=== PATIENT | female | born 1950 | race Caucasian/White ===

== ENCOUNTER 2017-01-11 08:34 | Inpatient (IN) | payer OTHER ==
[2017-01-06 11:04] LABS: BASOPHILS % (AUTO) 0.8 % (0.0-2.0); EOSINOPHILS # (AUTO) 0.2 K/uL (0.0-0.4); EOSINOPHILS % (AUTO) 4.6 % (0.0-4.0); HEMATOCRIT 31.6 % (36-48); HEMOGLOBIN 10.1 g/dL (12.0-16.0); LYMPHOCYTES # (AUTO) 2.2 K/uL (1.0-5.5); LYMPHOCYTES % (AUTO) 45.7 % (20.5-51.5); MEAN CORPUSCULAR HEMOGLOBIN 27 pg (27-31); MEAN CORPUSCULAR HGB CONC 32 % (32-36); MEAN CORPUSCULAR VOLUME 84 fL (79.0-98.0); MONOCYTES # (AUTO) 0.5 K/uL (0.0-1.0); NEUTROPHILS # (AUTO) 1.9 K/uL (1.8-7.7); NEUTROPHILS % (AUTO) 38.9 % (40.0-70.0); PLATELET COUNT (AUTO) 366 K/uL (130-430); RED BLOOD CELL COUNT(AUTO) 3.77 MIL/uL (4.2-6.2); RED CELL DISTRIBUTION WIDTH 14.7 % (9.0-15.0); WHITE BLOOD COUNT (AUTO) 4.8 K/uL (4.8-10.8)
[2017-01-06 11:12] LABS: PROTHROMBIN TIME 10.4 SECS (9.5-12.5)
[2017-01-06 11:15] LABS: BILIRUBIN,URINE NEGATIVE (NEGATIVE); BLOOD, URINE NEGATIVE (NEGATIVE); CLARITY/URINE CLEAR (CLEAR); COLOR,URINE YELLOW (YELLOW); GLUCOSE,URINE NEGATIVE (NEGATIVE); KETONES,URINE NEGATIVE (NEGATIVE); LEUKOCYTE ESTERASE ,URINE NEGATIVE (NEGATIVE); NITRITE, URINE NEGATIVE (NEGATIVE); PROTEIN URINE NEGATIVE (NEGATIVE); UROBILINOGEN,URINE 0.2 (0.2-1.0)
[2017-01-06 11:16] LABS: ALBUMIN 3.7 g/dL (3.4-4.8); CALCIUM 8.4 mg/dL (8.4-11.0); CREATININE 0.72 mg/dL (0.55-1.30); TOTAL BILIRUBIN 0.2 mg/dL (0.0-1.0); TOTAL PROTEIN, SERUM 7.3 g/dL (6.4-8.3)
[~2017-01-11] VITALS: Ht 157.5 cm; Wt 79.8 kg
[~2017-01-11 08:34] MED LIST: COMMUNICATION ORDER XX ONE
[2017-01-11] MEDS ORDERED: CEFAZOLIN SOD 2 GM in D5W 50 ML IV ONE (09:30)
[2017-01-11] MEDS ORDERED: VANCOMYCIN HCL 1,250 MG in NS 250 ML IV ONE (09:30)
[2017-01-11] MEDS ORDERED: TRANEXAMIC ACID 1,000 MG/10 ML VIAL IV ONE (09:45)
[2017-01-11] MEDS ORDERED: POLYMYXIN 500,000/BACIT.10,000 UNITS in NS IRR 1 L IR ONE (10:07)
[2017-01-11] MEDS ORDERED: SERT50TA PO (10:22)
[2017-01-11] MEDS ORDERED: BUDE180A3 INH (10:22)
[2017-01-11] MEDS ORDERED: METH-34 PO (10:22)
[2017-01-11] MEDS ORDERED: CETI1TAB2 PO (10:22)
[2017-01-11] MEDS ORDERED: FERR140T PO (10:22)
[2017-01-11] MEDS ORDERED: RALO60TA PO (10:22)
[2017-01-11] MEDS ORDERED: CYAN5000 SL (10:22)
[2017-01-11] MEDS ORDERED: BUDE6HFA INH (10:22)
[2017-01-11] MEDS ORDERED: CALC-1208 PO (10:22)
[2017-01-11] MEDS ORDERED: TRIA10.8 NS (10:22)
[2017-01-11] MEDS ORDERED: MONT10TA25 PO (10:22)
[2017-01-11] MEDS ORDERED: IBUP100T8 PO (10:22)
[2017-01-11] MEDS ORDERED: MULT-1189 PO (10:22)
[2017-01-11] MEDS ORDERED: OMEP40CA33 PO (10:22)
[2017-01-11] MEDS ORDERED: GABA800T PO (10:22)
[2017-01-11] MEDS ORDERED: VIS25 PO (10:22)
[2017-01-11] MEDS ORDERED: HYDR-4100 PO (10:22)
[2017-01-11] MEDS ORDERED: LIDP TP (10:22)
[2017-01-11] MEDS ORDERED: IBUP-1480 PO (10:26)
[2017-01-11] MEDS ORDERED: MUPI1OIN4 NS (10:52)
[2017-01-11] MEDS ORDERED: LR 1,000 ML IV ONE (14:13)
[2017-01-11] MEDS ORDERED: KETOROLAC TROMETHAMINE 30 MG VIAL IM PRN (14:15)
[2017-01-11] MEDS ORDERED: NALBUPHINE HCL 10 MG/ML AMP IVP PRN (14:15)
[2017-01-11] MEDS ORDERED: fentaNYL CITRATE/PF 100 MCG/2 ML AMP IVP PRN (14:15)
[2017-01-11] MEDS ORDERED: DIPHENHYDRAMINE INJ 50 MG/ML VIAL IVP PRN (14:15)
[2017-01-11] MEDS ORDERED: NALOXONE HCL 0.4 MG/ML AMP (NARCAN) IVP PRN (14:15)
[2017-01-11] MEDS ORDERED: ONDANSETRON HCL 4 MG/2 ML VIAL IVP PRN ×2 (14:15)
[2017-01-11] MEDS ORDERED: ePHEDrine sulfate 50 MG/ML VIAL IVP PRN (14:15)
[2017-01-11] MEDS ORDERED: fentaNYL CITRATE/PF 100 MCG/2 ML AMP ONE (16:07)
[2017-01-11 16:53] VITALS: BP_SYST 138
[2017-01-11] MEDS: HYDROcodone/ACETAMIN 10-325 MG TAB PO PRN ×2 (17:23→21:39)
[2017-01-11] MEDS: DIPHENHYDRAMINE HCL 25 MG CAPSULE PO PRN ×2 (17:23→22:15)
[2017-01-11] MEDS: D5/0.45 NS 1,000 ML IV SCH (17:24)
[2017-01-11 17:27] VITALS: BP_SYST 138
[2017-01-11] MEDS ORDERED: TRANEXAMIC ACID 1,000 MG in NS 50 ML IV ONE (18:15)
[2017-01-11 20:00] VITALS: BP_SYST 126
[2017-01-11] MEDS: SENNOSIDES 8.6 MG TABLET PO SCH (21:39)
[2017-01-11] MEDS: VANCOMYCIN HCL 750 MG in NS 250 ML IV SCH (21:39)
[2017-01-11] MEDS: MUPIROCIN 2% TOPICAL OINTMENT 22 GM TP SCH (21:40)
[2017-01-12] VITALS (7 sets, daily range): BP systolic 104–138
[2017-01-12] MEDS: DIPHENHYDRAMINE HCL 25 MG CAPSULE PO PRN ×2 (02:19→09:00)
[2017-01-12] MEDS: HYDROcodone/ACETAMIN 10-325 MG TAB PO PRN ×2 (02:28→22:57)
[2017-01-12] MEDS: D5/0.45 NS 1,000 ML IV SCH (04:35)
[2017-01-12 06:40] LABS: BASOPHILS % (AUTO) 0.2 % (0.0-2.0); EOSINOPHILS % (AUTO) 0.3 % (0.0-4.0); HEMATOCRIT 23.5 % (36-48); HEMOGLOBIN 7.6 g/dL (12.0-16.0); LYMPHOCYTES % (AUTO) 24.3 % (20.5-51.5); MEAN CORPUSCULAR HEMOGLOBIN 27 pg (27-31); MEAN CORPUSCULAR HGB CONC 32 % (32-36); MEAN CORPUSCULAR VOLUME 84 fL (79.0-98.0); MONOCYTES # (AUTO) 1.1 K/uL (0.0-1.0); MONOCYTES % (AUTO) 13.9 % (1.7-9.3); NEUTROPHILS % (AUTO) 61.3 % (40.0-70.0); PLATELET COUNT (AUTO) 278 K/uL (130-430); RED CELL DISTRIBUTION WIDTH 14.2 % (9.0-15.0); WHITE BLOOD COUNT (AUTO) 8.1 K/uL (4.8-10.8)
[2017-01-12 07:04] LABS: CALCIUM 7.8 mg/dL (8.4-11.0); CREATININE 0.65 mg/dL (0.55-1.30); POTASSIUM 3.9 mmol/L (3.5-5.1)
[2017-01-12] MEDS: GABAPENTIN 400 MG CAPSULE PO SCH ×4 (09:00→20:49)
[2017-01-12] MEDS: ASCORBIC ACID 500 MG TABLET PO SCH ×2 (09:01→20:49)
[2017-01-12] MEDS: OMEPRAZOLE 20 MG CAPSULE.DR (PriLOSEC) PO SCH (09:08)
[2017-01-12] MEDS: MULTIVITAMINS TAB 1 TABLET PO SCH (09:09)
[2017-01-12] MEDS: MUPIROCIN 2% TOPICAL OINTMENT 22 GM TP SCH ×2 (09:09→20:56)
[2017-01-12] MEDS: VANCOMYCIN HCL 750 MG in NS 250 ML IV SCH ×2 (09:09→20:54)
[2017-01-12] MEDS: RIVAROXABAN 10 MG TABLET PO SCH (12:22)
[2017-01-12] MEDS: ONDANSETRON HCL 4 MG/2 ML VIAL IVP PRN ×2 (12:34→21:28)
[2017-01-12 14:00] LABS: IRON (SERUM) 45 mcg/dL (37-145); TOTAL IRON BIND. CAPACITY 331 ug/dL (250-450)
[2017-01-12] MEDS: NACL 0.9% 1,000 ML IV SCH ×2 (14:55→20:49)
[2017-01-12] MEDS: IPRATROPIUM/ALBUTEROL SULFATE 3 ML AMPUL.NEB INH SCH ×3 (15:34→22:49)
[2017-01-12] MEDS: SENNOSIDES 8.6 MG TABLET PO SCH (20:49)
[2017-01-13 00:11] VITALS: BP_SYST 130
[2017-01-13] MEDS: IPRATROPIUM/ALBUTEROL SULFATE 3 ML AMPUL.NEB INH SCH ×6 (02:00→23:56)
[2017-01-13] MEDS: HYDROcodone/ACETAMIN 10-325 MG TAB PO PRN ×4 (03:59→20:29)
[2017-01-13 04:09] VITALS: BP_SYST 137
[2017-01-13 06:43] LABS: BASOPHILS % (AUTO) 0.2 % (0.0-2.0); EOSINOPHILS % (AUTO) 0.1 % (0.0-4.0); HEMATOCRIT 25.4 % (36-48); HEMOGLOBIN 8.2 g/dL (12.0-16.0); LYMPHOCYTES # (AUTO) 1.3 K/uL (1.0-5.5); LYMPHOCYTES % (AUTO) 14.6 % (20.5-51.5); MEAN CORPUSCULAR HEMOGLOBIN 28 pg (27-31); MEAN CORPUSCULAR HGB CONC 33 % (32-36); MEAN CORPUSCULAR VOLUME 85 fL (79.0-98.0); MONOCYTES # (AUTO) 1.2 K/uL (0.0-1.0); MONOCYTES % (AUTO) 13.3 % (1.7-9.3); NEUTROPHILS # (AUTO) 6.2 K/uL (1.8-7.7); NEUTROPHILS % (AUTO) 71.8 % (40.0-70.0); PLATELET COUNT (AUTO) 281 K/uL (130-430); RED BLOOD CELL COUNT(AUTO) 2.98 MIL/uL (4.2-6.2); WHITE BLOOD COUNT (AUTO) 8.7 K/uL (4.8-10.8)
[2017-01-13] MEDS: OMEPRAZOLE 20 MG CAPSULE.DR (PriLOSEC) PO SCH (06:46)
[2017-01-13 06:57] LABS: CALCIUM 7.8 mg/dL (8.4-11.0); CREATININE 0.6 mg/dL (0.55-1.30); POTASSIUM 3.8 mmol/L (3.5-5.1); VANCOMYCIN,TROUGH 7.8 ug/mL (5.0-10.0)
[2017-01-13 08:00] VITALS: BP_SYST 126
[2017-01-13] MEDS: ONDANSETRON HCL 4 MG/2 ML VIAL IVP PRN (08:34)
[2017-01-13] MEDS: MULTIVITAMINS TAB 1 TABLET PO SCH (08:35)
[2017-01-13] MEDS: GABAPENTIN 400 MG CAPSULE PO SCH ×4 (08:35→20:28)
[2017-01-13] MEDS: VANCOMYCIN HCL 750 MG in NS 250 ML IV SCH (08:35)
[2017-01-13] MEDS: ASCORBIC ACID 500 MG TABLET PO SCH ×2 (08:35→20:31)
[2017-01-13] MEDS: MUPIROCIN 2% TOPICAL OINTMENT 22 GM TP SCH ×2 (08:37→20:32)
[2017-01-13] MEDS: RIVAROXABAN 10 MG TABLET PO SCH (09:45)
[2017-01-13] MEDS: NACL 0.9% 1,000 ML IV SCH ×2 (09:46→18:45)
[2017-01-13 12:00] VITALS: BP_SYST 128
[2017-01-13] MEDS: FERROUS SULFATE 140 MG TABLET.ER PO SCH ×3 (14:02→20:43)
[2017-01-13] MEDS ORDERED: MUPIROCIN NASAL 2% OINT. 1 GM NS SCH (15:00)
[2017-01-13] MEDS ORDERED: BUDESONIDE/FORMOTEROL 160-4.5 mCg, 6 GM INHALER INH SCH (15:00)
[2017-01-13 16:00] VITALS: BP_SYST 130
[2017-01-13] MEDS: VANCOMYCIN HCL 1,000 MG in NS 250 ML IV SCH (17:16)
[2017-01-13 19:50] VITALS: BP_SYST 135
[2017-01-13] MEDS: SENNOSIDES 8.6 MG TABLET PO SCH (20:28)
[2017-01-13] MEDS: METHOCARBAMOL 500 MG TABLET PO SCH (20:30)
[2017-01-14] VITALS (8 sets, daily range): BP systolic 105–141
[2017-01-14] MEDS: VANCOMYCIN HCL 1,000 MG in NS 250 ML IV SCH ×3 (00:20→17:14)
[2017-01-14] MEDS: IPRATROPIUM/ALBUTEROL SULFATE 3 ML AMPUL.NEB INH SCH ×4 (03:48→17:32)
[2017-01-14] MEDS: HYDROcodone/ACETAMIN 10-325 MG TAB PO PRN ×4 (05:51→19:32)
[2017-01-14 06:26] LABS: CALCIUM 7.7 mg/dL (8.4-11.0); CREATININE 0.48 mg/dL (0.55-1.30); POTASSIUM 3.5 mmol/L (3.5-5.1)
[2017-01-14 06:39] LABS: BASOPHILS % (AUTO) 0.5 % (0.0-2.0); EOSINOPHILS # (AUTO) 0.1 K/uL (0.0-0.4); EOSINOPHILS % (AUTO) 1.9 % (0.0-4.0); HEMATOCRIT 23.8 % (36-48); HEMOGLOBIN 7.8 g/dL (12.0-16.0); LYMPHOCYTES # (AUTO) 1.8 K/uL (1.0-5.5); MEAN CORPUSCULAR HEMOGLOBIN 28 pg (27-31); MEAN CORPUSCULAR HGB CONC 33 % (32-36); MEAN CORPUSCULAR VOLUME 84 fL (79.0-98.0); MONOCYTES # (AUTO) 0.9 K/uL (0.0-1.0); MONOCYTES % (AUTO) 11.7 % (1.7-9.3); NEUTROPHILS # (AUTO) 4.7 K/uL (1.8-7.7); NEUTROPHILS % (AUTO) 61.9 % (40.0-70.0); PLATELET COUNT (AUTO) 260 K/uL (130-430); RED BLOOD CELL COUNT(AUTO) 2.82 MIL/uL (4.2-6.2); RED CELL DISTRIBUTION WIDTH 14.7 % (9.0-15.0); WHITE BLOOD COUNT (AUTO) 7.5 K/uL (4.8-10.8)
[2017-01-14] MEDS ORDERED: OMEPRAZOLE 20 MG CAPSULE.DR (PriLOSEC) PO SCH (07:00)
[2017-01-14] MEDS: NACL 0.9% 1,000 ML IV SCH (07:27)
[2017-01-14] MEDS ORDERED: SERTRALINE HCL 50 MG TABLET PO SCH (09:00)
[2017-01-14] MEDS ORDERED: MONTELUKAST 10 MG TABLET PO SCH (09:00)
[2017-01-14] MEDS ORDERED: RALOXIFENE HCL 60 MG TABLET (EVISTA) PO SCH (09:00)
[2017-01-14] MEDS ORDERED: FLUTICASONE/VILANTEROL 1 EACH BLST.W.DEV INH SCH (09:00)
[2017-01-14] MEDS: ASCORBIC ACID 500 MG TABLET PO SCH (09:16)
[2017-01-14] MEDS: GABAPENTIN 400 MG CAPSULE PO SCH ×3 (09:16→17:13)
[2017-01-14] MEDS: MULTIVITAMINS TAB 1 TABLET PO SCH (09:16)
[2017-01-14] MEDS: METHOCARBAMOL 500 MG TABLET PO SCH (09:17)
[2017-01-14] MEDS: MUPIROCIN 2% TOPICAL OINTMENT 22 GM TP SCH (09:18)
[2017-01-14] MEDS: RIVAROXABAN 10 MG TABLET PO SCH (10:01)
[2017-01-14] MEDS: FERROUS SULFATE 140 MG TABLET.ER PO SCH (14:18)
== END 2017-01-14 20:00 | DRG 470 ==
LOC: SMU 09:19 → STU 01-12 05:31
PROVIDERS: ADMIT Orthopaedic Surgery; ATTEND Orthopaedic Surgery
PROC: 3E0T3CZ (ICD-10-PCS; 2017-01-11)
PROC: 0SRC0J9 Replacement of Right Knee Joint with Synthetic Substitute, Cemented, Open Approach (ICD-10-PCS; principal; 2017-01-11 12:00)
PROC: 30233N1 Transfusion of Nonautologous Red Blood Cells into Peripheral Vein, Percutaneous Approach (ICD-10-PCS; 2017-01-12)
DX: M17.0 Bilateral primary osteoarthritis of knee (principal); D62 Acute posthemorrhagic anemia; E66.9 Obesity, unspecified; F17.200 Nicotine dependence, unspecified, uncomplicated; M65.9 Synovitis and tenosynovitis, unspecified; M81.0 Age-related osteoporosis without current pathological fracture; M22.41 Chondromalacia patellae, right knee; J44.9 Chronic obstructive pulmonary disease, unspecified; F41.9 Anxiety disorder, unspecified; F32.9 Major depressive disorder, single episode, unspecified; G89.29 Other chronic pain; F11.90 Opioid use, unspecified, uncomplicated; M54.5 Low back pain; K21.9 Gastro-esophageal reflux disease without esophagitis; G89.18 Other acute postprocedural pain; Z87.01 Personal history of pneumonia (recurrent); Z98.84 Bariatric surgery status; Z86.14 Personal history of Methicillin resistant Staphylococcus aureus infection; Z88.8 Allergy status to other drugs, medicaments and biological substances; Z82.49 Family history of ischemic heart disease and other diseases of the circulatory system; Z80.3 Family history of malignant neoplasm of breast; Z68.32 Body mass index [BMI] 32.0-32.9, adult; Z82.3 Family history of stroke; Z82.61 Family history of arthritis; Z81.1 Family history of alcohol abuse and dependence; R53.81 Other malaise
CPT/HCPCS: 36415; 71020-TC; 73560-TC; 80048; 80053; 80202-TC; 81003; 82306; 82607; 82746; 83540-TC; 83550-TC; 85025; 85610-TC; 85730-TC; 86886; 86890; 86900; 86901; 86920; 87081; 88305; 88311; 94010; 94640; 94760; 97110-GP; 97116-GP; 97530-GP; C1713; C1776; J0690; J1170; J2405; J3010; J3370; J3490; J7030; J7050; J7060; J7120; Q0163

== ENCOUNTER 2017-07-30 14:14 | Outpatient (CLI) | payer OTHER ==
[~2017-07-30 14:14] MED LIST changes: +BUDE180A3 INH; +BUDE6HFA INH; +CALC-1208 PO; +CETI1TAB2 PO; -COMMUNICATION ORDER XX ONE; +CYAN5000 SL; +FERR140T PO; +GABA800T PO; +HYDR-4100 PO; +IBUP-1480 PO; +LIDP TP; +METH-34 PO; +MONT10TA25 PO; +MULT-1189 PO; +MUPI1OIN4 NS; +OMEP40CA33 PO; +RALO60TA PO; +SERT50TA PO; +TRIA10.8 NS; +VIS25 PO
== END 2017-07-30 20:32 | disposition home or self-care (01) ==
LOC: SLB 14:14
PROVIDERS: ATTEND Internal Medicine Infectious Disease
DX: A49.02 Methicillin resistant Staphylococcus aureus infection, unspecified site (principal)
CPT/HCPCS: 87081

== ENCOUNTER 2017-08-01 15:23 | Outpatient (CLI) | payer OTHER | END 2017-08-01 21:18 | disposition home or self-care (01) | LOC: SLB 15:23 | PROVIDERS: ATTEND Orthopaedic Surgery | DX: A49.02 Methicillin resistant Staphylococcus aureus infection, unspecified site (principal) | CPT/HCPCS: 87081 ==

== ENCOUNTER 2022-10-31 19:13 | Emergency (ER) | payer OTHER ==
[~2022-10-31] VITALS: Ht 152.4 cm; Wt 87.1 kg
[~2022-10-31 19:13] MED LIST changes: -BUDE180A3 INH; -BUDE6HFA INH; +CYAN100T44 PO; -CYAN5000 SL; +DOXY100T2 PO; -FERR140T PO; +FERR140T2 PO; +HYDR-3927 PO; -HYDR-4100 PO; -IBUP-1480 PO; +IBUP-1970 PO; -LIDP TP; +MONT-40 PO; -MONT10TA25 PO; -MUPI1OIN4 NS; +OMEP40CA20 PO; -OMEP40CA33 PO; +VITD2000 PO
[2022-10-31 19:23] VITALS: BP_SYST 115
[2022-10-31 20:11] LABS: BASOPHILS % (AUTO) 0.3 % (0.0-2.0); EOSINOPHILS % (AUTO) 0.4 % (0.0-4.0); HEMOGLOBIN 11.6 g/dL (12.0-16.0); LYMPHOCYTES # (AUTO) 1.2 K/uL (1.0-5.5); LYMPHOCYTES % (AUTO) 17.9 % (20.5-51.5); MEAN CORPUSCULAR HEMOGLOBIN 30 pg (27-31); MEAN CORPUSCULAR HGB CONC 33 % (32-36); MEAN CORPUSCULAR VOLUME 89 fL (79.0-98.0); MONOCYTES # (AUTO) 0.7 K/uL (0.0-1.0); NEUTROPHILS # (AUTO) 4.8 K/uL (1.8-7.7); NEUTROPHILS % (AUTO) 71.4 % (40.0-70.0); PLATELET COUNT (AUTO) 214 K/uL (130-430); RED BLOOD CELL COUNT(AUTO) 3.93 MIL/uL (4.2-6.2); RED CELL DISTRIBUTION WIDTH 18.7 % (9.0-15.0); WHITE BLOOD COUNT (AUTO) 6.7 K/uL (4.8-10.8)
[2022-10-31 20:25] LABS: ANION GAP 7 (5-15); CALCIUM 8.2 mg/dL (8.4-11.0); CHLORIDE 94 mmol/L (98-107); CREATININE 0.76 mg/dL (0.55-1.30); GLUCOSE 118 mg/dL (70-99); UREA NITROGEN, BLOOD 6 mg/dL (8-21)
[2022-10-31] MEDS ORDERED: IPRATROPIUM/ALBUTEROL SULFATE 3 ML AMPUL.NEB (DUONEB) INH ONE (20:30)
[2022-10-31 20:32] LABS: ALANINE AMINOTRANSFERASE 22 U/L (12-78); ALBUMIN 2.9 g/dL (3.4-4.8); ASPARTATE AMINOTRANSFERASE 23 U/L (10-37); TOTAL BILIRUBIN 0.3 mg/dL (0.0-1.0)
[2022-10-31] MEDS ORDERED: predniSONE 20 MG TABLET PO ONE (21:15)
[2022-10-31] MEDS ORDERED: predniSONE 20 MG TABLET ONE (21:36)
[2022-10-31] MEDS ORDERED: PRED20TA PO ×3 (22:00→22:03)
[2022-10-31 22:58] VITALS: BP_SYST 132
== END 2022-10-31 22:57 | disposition home or self-care (01) ==
LOC: SED 19:13
DX: J44.1 Chronic obstructive pulmonary disease with (acute) exacerbation (principal); J40 Bronchitis, not specified as acute or chronic; R06.02 Shortness of breath; R05.9 Cough, unspecified; R11.10 Vomiting, unspecified; Z88.8 Allergy status to other drugs, medicaments and biological substances; Z79.899 Other long term (current) drug therapy; Z20.822 Contact with and (suspected) exposure to COVID-19
CPT/HCPCS: 99284; 71045; 87426; 80053; 85025; 84484; 36415; 94640; J7512

== ENCOUNTER 2023-11-03 15:47 | Inpatient (IN) | payer OTHER ==
[~2023-11-03] VITALS: Ht 152.4 cm; Wt 83.0 kg
[~2023-11-03 15:47] MED LIST changes: +PRED20TA PO
[2023-11-03 15:54] VITALS: BP_SYST 114; PULSE 109; RESP 17; TEMP 100; O2SAT 95
[2023-11-03 16:40] LABS: BASOPHILS % (AUTO) 0.2 % (0.0-2.0); EOSINOPHILS % (AUTO) 0.1 % (0.0-4.0); HEMATOCRIT 38.7 % (36-48); LYMPHOCYTES # (AUTO) 0.6 K/uL (1.0-5.5); LYMPHOCYTES % (AUTO) 5.1 % (20.5-51.5); MEAN CORPUSCULAR HEMOGLOBIN 30 pg (27-31); MEAN CORPUSCULAR HGB CONC 34 % (32-36); MEAN CORPUSCULAR VOLUME 90 fL (79.0-98.0); MONOCYTES # (AUTO) 0.9 K/uL (0.0-1.0); MONOCYTES % (AUTO) 7.5 % (1.7-9.3); NEUTROPHILS % (AUTO) 87.1 % (40.0-70.0); PLATELET COUNT (AUTO) 273 K/uL (130-430); RED BLOOD CELL COUNT(AUTO) 4.31 MIL/uL (4.2-6.2); RED CELL DISTRIBUTION WIDTH 14.7 % (9.0-15.0); WHITE BLOOD COUNT (AUTO) 11.5 K/uL (4.8-10.8)
[2023-11-03 16:58] LABS: ALANINE AMINOTRANSFERASE 21 U/L (12-78); ALBUMIN 3.6 g/dL (3.4-4.8); ANION GAP 7 (5-15); ASPARTATE AMINOTRANSFERASE 22 U/L (10-37); CALCIUM 9.2 mg/dL (8.4-11.0); CARBON DIOXIDE 28 mmol/L (23-29); CHLORIDE 98 mmol/L (98-107); CREATININE 0.82 mg/dL (0.55-1.30); GLUCOSE 117 mg/dL (74-106); POTASSIUM 4.1 mmol/L (3.5-5.1); SODIUM SERUM 133 mmol/L (136-145); TOTAL BILIRUBIN 0.4 mg/dL (0.0-1.0); TOTAL PROTEIN, SERUM 7.7 g/dL (6.4-8.3); UREA NITROGEN, BLOOD 12 mg/dL (8-21)
[2023-11-03 17:00] LABS: BILIRUBIN,DIRECT 0.1 mg/dL (0.0-0.3)
[2023-11-03] MEDS ORDERED: ACETAMINOPHEN 500 MG TABLET ONE (17:11)
[2023-11-03] MEDS: ACETAMINOPHEN 500 MG TABLET PO ONE (17:13)
[2023-11-03 18:07] LABS: BILIRUBIN,URINE NEGATIVE (NEGATIVE); BLOOD, URINE 2+ (NEGATIVE); CLARITY/URINE CLOUDY (CLEAR); COLOR,URINE YELLOW (YELLOW); GLUCOSE,URINE NEGATIVE (NEGATIVE); KETONES,URINE 2+ (NEGATIVE); LEUKOCYTE ESTERASE ,URINE 1+ (NEGATIVE); NITRITE, URINE POSITIVE (NEGATIVE); PROTEIN URINE 2+ (NEGATIVE); UROBILINOGEN,URINE 0.2 (0.2-1.0)
[2023-11-03 18:44] VITALS: BP_SYST 116; PULSE 89; RESP 18; TEMP 99.9; O2SAT 95
[2023-11-03 18:46] LABS: BACTERIA,URINE MANY /HPF (None Seen); WBC,URINE >100 /HPF (0-3)
[2023-11-03 18:47] LABS: MUCUS,URINE None Seen /LPF (None Seen)
[2023-11-03 20:00] VITALS: BP_SYST 102; PULSE 82; RESP 18; TEMP 98; O2SAT 93
[2023-11-03] MEDS ORDERED: NALOXONE HCL 0.4 MG/ML AMP (NARCAN) IVP PRN (21:15)
[2023-11-03 21:22] VITALS: BP_SYST 102; PULSE 82; RESP 18; TEMP 98
[2023-11-03] MEDS: DIPHENHYDRAMINE HCL 50 MG CAPSULE PO PRN (21:28)
[2023-11-03] MEDS: HYDROcodone/ACETAMIN 5-325 MG TAB (NORCO/ VICODIN) PO ONE (21:29)
[2023-11-03 22:02] VITALS: O2SAT 93
[2023-11-03 22:07] VITALS: BP_SYST 102; PULSE 82; RESP 18; TEMP 98; O2SAT 93
[2023-11-04 03:30] VITALS: BP_SYST 133; PULSE 102; RESP 18; TEMP 99.3; O2SAT 93
[2023-11-04 03:54] VITALS: PULSE 100; TEMP 98.4
[2023-11-04 08:00] VITALS: BP_SYST 108; PULSE 81; RESP 18; TEMP 98.4; O2SAT 99
[2023-11-04] MEDS ORDERED: TRIAMCINOLONE ACETONIDE NS SCH (10:00)
[2023-11-04] MEDS ORDERED: ACETAMINOPHEN 325 MG TABLET PO PRN (10:00)
[2023-11-04] MEDS ORDERED: ONDANSETRON HCL 4 MG/2 ML VIAL IVP PRN (10:00)
[2023-11-04] MEDS ORDERED: NALOXONE HCL 0.4 MG/ML AMP (NARCAN) IVP PRN ×2 (10:00)
[2023-11-04] MEDS ORDERED: CALCIUM CARBONATE PO SCH (10:00)
[2023-11-04] MEDS ORDERED: OMEPRAZOLE Non-Formulary 20 MG CAPSULE.DR PO SCH (10:00)
[2023-11-04] MEDS ORDERED: VITAMIN D3 PO SCH (10:00)
[2023-11-04] MEDS ORDERED: [UNRECOGNIZED DRUG - OTHER] PO SCH (10:00)
[2023-11-04] MEDS ORDERED: LORazepam 2 MG/ML VIAL IVP PRN (10:00)
[2023-11-04] MEDS ORDERED: NON-FORMULARY MEDICATION (Cetirizine Hcl/Pseudoephedrine (Zyrtec-D Tablet) 1 TAB) PO SCH (10:00)
[2023-11-04] MEDS ORDERED: NON-FORMULARY MEDICATION (Cyanocobalamin (Vitamin B-12) 1,000 MCG) PO SCH (10:00)
[2023-11-04 10:25] LABS: BASOPHILS % (AUTO) 0.2 % (0.0-2.0); HEMATOCRIT 36.6 % (36-48); HEMOGLOBIN 12.4 g/dL (12.0-16.0); LYMPHOCYTES # (AUTO) 1.2 K/uL (1.0-5.5); LYMPHOCYTES % (AUTO) 8.7 % (20.5-51.5); MEAN CORPUSCULAR HEMOGLOBIN 31 pg (27-31); MEAN CORPUSCULAR HGB CONC 34 % (32-36); MEAN CORPUSCULAR VOLUME 91 fL (79.0-98.0); MONOCYTES # (AUTO) 1.3 K/uL (0.0-1.0); MONOCYTES % (AUTO) 9.2 % (1.7-9.3); NEUTROPHILS # (AUTO) 11.6 K/uL (1.8-7.7); NEUTROPHILS % (AUTO) 81.9 % (40.0-70.0); PLATELET COUNT (AUTO) 246 K/uL (130-430); RED BLOOD CELL COUNT(AUTO) 4.05 MIL/uL (4.2-6.2); RED CELL DISTRIBUTION WIDTH 14.5 % (9.0-15.0); WHITE BLOOD COUNT (AUTO) 14.2 K/uL (4.8-10.8)
[2023-11-04 10:42] LABS: ALANINE AMINOTRANSFERASE 21 U/L (12-78); ANION GAP 7 (5-15); ASPARTATE AMINOTRANSFERASE 25 U/L (10-37); CALCIUM 8.4 mg/dL (8.4-11.0); CARBON DIOXIDE 28 mmol/L (23-29); CHLORIDE 94 mmol/L (98-107); CREATININE 0.91 mg/dL (0.55-1.30); GLUCOSE 132 mg/dL (74-106); POTASSIUM 3.6 mmol/L (3.5-5.1); SODIUM SERUM 129 mmol/L (136-145); TOTAL BILIRUBIN 0.4 mg/dL (0.0-1.0); TOTAL PROTEIN, SERUM 7.1 g/dL (6.4-8.3); UREA NITROGEN, BLOOD 9 mg/dL (8-21)
[2023-11-04 12:00] VITALS: BP_SYST 112; PULSE 81; RESP 16; TEMP 98.6; O2SAT 97
[2023-11-04] MEDS: CHOLECALCIFEROL (VITAMIN D3) 2,000 UNIT TABLET PO ONE (12:04)
[2023-11-04] MEDS: SERTRALINE HCL 50 MG TABLET PO ONE (12:04)
[2023-11-04] MEDS: MONTELUKAST 10 MG TABLET PO ONE (12:04)
[2023-11-04] MEDS: IBUPROFEN 800 MG TABLET PO ONE (12:05)
[2023-11-04] MEDS ORDERED: CYAN100010 PO (12:13)
[2023-11-04] MEDS: CALCIUM CARBONATE/VITAMIN D3 1 TAB TABLET PO ONE (12:41)
[2023-11-04] MEDS: MULTIVITS,CA,MINERALS/IRON/FA 1 TABLET PO ONE (12:41)
[2023-11-04] MEDS: PANTOPRAZOLE SODIUM 40 MG TAB PO ONE (12:41)
[2023-11-04] MEDS: CYANOCOBALAMIN (VITAMIN B-12) 1,000 MCG TABLET PO ONE (12:42)
[2023-11-04] MEDS: RALOXIFENE HCL 60 MG TABLET (EVISTA) PO ONE (12:47)
[2023-11-04] MEDS: cefTRIAXone 1 GM IVPB PREMIX 50 ML IV SCH (12:57)
[2023-11-04] MEDS: NORMAL SALINE 5 ML DISP.SYRIN IVF SCH (14:03)
[2023-11-04] MEDS: GABAPENTIN 400 MG CAPSULE PO SCH (14:05)
[2023-11-04] MEDS ORDERED: FOLI-43 PO (14:18)
[2023-11-04] MEDS ORDERED: [UNRECOGNIZED DRUG - CODE] PO (14:18)
[2023-11-04] MEDS ORDERED: METH2.5T PO (14:18)
[2023-11-04] MEDS ORDERED: SERT-131 PO (14:18)
[2023-11-04] MEDS ORDERED: BEN50 PO (14:18)
[2023-11-04] MEDS ORDERED: CHOL500013 PO (14:18)
[2023-11-04 16:00] VITALS: BP_SYST 118; PULSE 79; RESP 18; TEMP 98.2; O2SAT 99
[2023-11-04] MEDS: FERROUS SULFATE 142 MG TABLET.ER PO SCH (16:25)
[2023-11-04] MEDS: HYDROcodone/ACETAMIN 5-325 MG TAB (NORCO/ VICODIN) PO PRN (16:25)
[2023-11-04 20:12] VITALS: BP_SYST 139; PULSE 91; RESP 20; TEMP 98; O2SAT 98
[2023-11-04] MEDS: metroNIDAZOLE 500 mg/NS 100 ML IV SCH (21:03)
[2023-11-04] MEDS: methocarbamoL 750 MG TABLET PO SCH (21:04)
[2023-11-05 00:21] VITALS: BP_SYST 145; PULSE 105; RESP 16; TEMP 98.4; O2SAT 95
[2023-11-05] MEDS: HYDROcodone/ACETAMIN 10-325 MG TAB PO PRN (04:27)
[2023-11-05 05:47] LABS: BASOPHILS % (AUTO) 0.1 % (0.0-2.0); HEMATOCRIT 36.2 % (36-48); HEMOGLOBIN 12.2 g/dL (12.0-16.0); LYMPHOCYTES # (AUTO) 0.7 K/uL (1.0-5.5); LYMPHOCYTES % (AUTO) 4.9 % (20.5-51.5); MEAN CORPUSCULAR HEMOGLOBIN 31 pg (27-31); MEAN CORPUSCULAR HGB CONC 34 % (32-36); MEAN CORPUSCULAR VOLUME 91 fL (79.0-98.0); MONOCYTES # (AUTO) 1.1 K/uL (0.0-1.0); MONOCYTES % (AUTO) 7.7 % (1.7-9.3); NEUTROPHILS % (AUTO) 87.3 % (40.0-70.0); PLATELET COUNT (AUTO) 224 K/uL (130-430); RED BLOOD CELL COUNT(AUTO) 3.98 MIL/uL (4.2-6.2); RED CELL DISTRIBUTION WIDTH 14.7 % (9.0-15.0); WHITE BLOOD COUNT (AUTO) 13.7 K/uL (4.8-10.8)
[2023-11-05 05:59] LABS: ANION GAP 11 (5-15); CALCIUM 8.4 mg/dL (8.4-11.0); CARBON DIOXIDE 24 mmol/L (23-29); CHLORIDE 96 mmol/L (98-107); CREATININE 0.66 mg/dL (0.55-1.30); GLUCOSE 112 mg/dL (74-106); POTASSIUM 3.6 mmol/L (3.5-5.1); SODIUM SERUM 131 mmol/L (136-145); UREA NITROGEN, BLOOD 8 mg/dL (8-21)
[2023-11-05 07:46] VITALS: BP_SYST 116; PULSE 94; RESP 18; TEMP 98.6; O2SAT 95
[2023-11-05 08:00] VITALS: O2SAT 98
[2023-11-05] MEDS: PANTOPRAZOLE SODIUM 40 MG TAB PO SCH (08:31)
[2023-11-05] MEDS: RALOXIFENE HCL 60 MG TABLET (EVISTA) PO SCH (08:31)
[2023-11-05] MEDS: CALCIUM CARBONATE/VITAMIN D3 1 TAB TABLET PO SCH (08:32)
[2023-11-05] MEDS: IBUPROFEN 800 MG TABLET PO SCH (08:32)
[2023-11-05] MEDS: MONTELUKAST 10 MG TABLET PO SCH (08:34)
[2023-11-05] MEDS: CHOLECALCIFEROL (VITAMIN D3) 2,000 UNIT TABLET PO SCH (09:18)
[2023-11-05] MEDS: MULTIVITS,CA,MINERALS/IRON/FA 1 TABLET PO SCH (09:19)
[2023-11-05] MEDS: SERTRALINE HCL 50 MG TABLET PO SCH (09:19)
[2023-11-05] MEDS: CYANOCOBALAMIN (VITAMIN B-12) 1,000 MCG TABLET PO SCH (09:19)
[2023-11-05] MEDS: methocarbamoL 500 MG TABLET PO SCH (09:47)
[2023-11-05 11:54] VITALS: BP_SYST 92; PULSE 95; RESP 20; TEMP 98; O2SAT 96
[2023-11-05 12:41] VITALS: BP_SYST 116; PULSE 94; RESP 18; TEMP 98.6; O2SAT 95
[2023-11-05 20:10] VITALS: BP_SYST 98; PULSE 68; RESP 18; TEMP 97.4; O2SAT 94
[2023-11-06 00:10] VITALS: BP_SYST 136; PULSE 60; RESP 18; TEMP 99.5; O2SAT 96
[2023-11-06 06:58] LABS: BASOPHILS % (AUTO) 0.4 % (0.0-2.0); EOSINOPHILS # (AUTO) 0.1 K/uL (0.0-0.4); EOSINOPHILS % (AUTO) 0.6 % (0.0-4.0); HEMATOCRIT 34.1 % (36-48); HEMOGLOBIN 11.7 g/dL (12.0-16.0); LYMPHOCYTES # (AUTO) 1.1 K/uL (1.0-5.5); LYMPHOCYTES % (AUTO) 9.7 % (20.5-51.5); MEAN CORPUSCULAR HEMOGLOBIN 31 pg (27-31); MEAN CORPUSCULAR HGB CONC 34 % (32-36); MEAN CORPUSCULAR VOLUME 90 fL (79.0-98.0); MONOCYTES # (AUTO) 0.8 K/uL (0.0-1.0); MONOCYTES % (AUTO) 7.2 % (1.7-9.3); NEUTROPHILS # (AUTO) 9.5 K/uL (1.8-7.7); NEUTROPHILS % (AUTO) 82.1 % (40.0-70.0); PLATELET COUNT (AUTO) 244 K/uL (130-430); RED BLOOD CELL COUNT(AUTO) 3.79 MIL/uL (4.2-6.2); RED CELL DISTRIBUTION WIDTH 14.8 % (9.0-15.0); WHITE BLOOD COUNT (AUTO) 11.6 K/uL (4.8-10.8)
[2023-11-06 07:08] LABS: ANION GAP 10 (5-15); CALCIUM 8.4 mg/dL (8.4-11.0); CARBON DIOXIDE 24 mmol/L (23-29); CHLORIDE 90 mmol/L (98-107); CREATININE 0.95 mg/dL (0.55-1.30); GLUCOSE 121 mg/dL (74-106); POTASSIUM 3.8 mmol/L (3.5-5.1); SODIUM SERUM 124 mmol/L (136-145); UREA NITROGEN, BLOOD 18 mg/dL (8-21)
[2023-11-06 07:43] LABS: ERYTHROCYTE SEDIMENTATION RATE 89 MM/HR (0-20)
[2023-11-06 08:05] VITALS: BP_SYST 141; PULSE 65; RESP 19; TEMP 99.3; O2SAT 100
[2023-11-06 08:14] VITALS: O2SAT 100
[2023-11-06] MEDS: NACL 0.9% 1,000 ML IV SCH (11:30)
[2023-11-06 16:52] VITALS: BP_SYST 140; PULSE 68; RESP 20; TEMP 99; O2SAT 99
[2023-11-06 21:50] VITALS: BP_SYST 96; PULSE 96; RESP 18; TEMP 97.1; O2SAT 96
[2023-11-06] MEDS: ERTAPENEM SODIUM 1 GM in NS 50 ML IV SCH (22:39)
[2023-11-07 00:44] VITALS: BP_SYST 96; PULSE 91; RESP 18; TEMP 96.5
[2023-11-07 06:08] LABS: BASOPHILS % (AUTO) 0.3 % (0.0-2.0); EOSINOPHILS # (AUTO) 0.2 K/uL (0.0-0.4); EOSINOPHILS % (AUTO) 1.4 % (0.0-4.0); HEMATOCRIT 35.1 % (36-48); HEMOGLOBIN 11.7 g/dL (12.0-16.0); LYMPHOCYTES # (AUTO) 1.2 K/uL (1.0-5.5); LYMPHOCYTES % (AUTO) 10.9 % (20.5-51.5); MEAN CORPUSCULAR HEMOGLOBIN 30 pg (27-31); MEAN CORPUSCULAR HGB CONC 33 % (32-36); MEAN CORPUSCULAR VOLUME 90 fL (79.0-98.0); MONOCYTES # (AUTO) 0.9 K/uL (0.0-1.0); MONOCYTES % (AUTO) 7.8 % (1.7-9.3); NEUTROPHILS # (AUTO) 8.8 K/uL (1.8-7.7); NEUTROPHILS % (AUTO) 79.6 % (40.0-70.0); PLATELET COUNT (AUTO) 271 K/uL (130-430); RED CELL DISTRIBUTION WIDTH 14.9 % (9.0-15.0)
[2023-11-07 06:13] LABS: ERYTHROCYTE SEDIMENTATION RATE 61 MM/HR (0-20)
[2023-11-07 06:33] LABS: ALANINE AMINOTRANSFERASE 26 U/L (12-78); ALBUMIN 2.1 g/dL (3.4-4.8); ANION GAP 8 (5-15); ASPARTATE AMINOTRANSFERASE 23 U/L (10-37); CALCIUM 8.2 mg/dL (8.4-11.0); CARBON DIOXIDE 27 mmol/L (23-29); CHLORIDE 101 mmol/L (98-107); CREATININE 0.76 mg/dL (0.55-1.30); GLUCOSE 93 mg/dL (74-106); PHOSPHORUS 2.4 mg/dL (2.7-4.5); POTASSIUM 3.4 mmol/L (3.5-5.1); SODIUM SERUM 136 mmol/L (136-145); TOTAL BILIRUBIN 0.3 mg/dL (0.0-1.0); TOTAL PROTEIN, SERUM 5.9 g/dL (6.4-8.3); UREA NITROGEN, BLOOD 12 mg/dL (8-21)
[2023-11-07 08:00] VITALS: O2SAT 99
[2023-11-07 08:15] VITALS: BP_SYST 144; PULSE 81; RESP 18; TEMP 98; O2SAT 97
[2023-11-07 11:12] VITALS: BP_SYST 93; PULSE 96; RESP 15; TEMP 97.1; O2SAT 98
[2023-11-07] MEDS: K PHOS 15 MM in NS 250 ML IV ONE (13:13)
[2023-11-07] MEDS ORDERED: ERTA1VIA3 INJ (16:01)
[2023-11-07 16:40] VITALS: BP_SYST 109; PULSE 99; RESP 16; TEMP 96.8; O2SAT 97
[2023-11-07 18:19] VITALS: BP_SYST 109; PULSE 99; RESP 18; TEMP 96.8; O2SAT 97
== END 2023-11-07 20:04 | disposition home health service (06) | DRG 871 ==
LOC: SED 15:47 → STU 17:28 → SMU 11-05 17:35
PROVIDERS: ADMIT Preventive Medicine Preventive Medicine/Occupational Environmental Medicine; ATTEND Preventive Medicine Preventive Medicine/Occupational Environmental Medicine
PROC: 4A00X4Z Measurement of Central Nervous Electrical Activity, External Approach (ICD-10-PCS; 2023-11-06)
PROC: 05HY33Z Insertion of Infusion Device into Upper Vein, Percutaneous Approach (ICD-10-PCS; principal; 2023-11-07)
DX: A41.9 Sepsis, unspecified organism (principal); E43 Unspecified severe protein-calorie malnutrition; E87.1 Hypo-osmolality and hyponatremia; N39.0 Urinary tract infection, site not specified; K21.9 Gastro-esophageal reflux disease without esophagitis; E66.9 Obesity, unspecified; B96.20 Unspecified Escherichia coli [E. coli] as the cause of diseases classified elsewhere; D64.9 Anemia, unspecified; E83.39 Other disorders of phosphorus metabolism; E83.41 Hypermagnesemia; E83.51 Hypocalcemia; E87.6 Hypokalemia; E88.09 Other disorders of plasma-protein metabolism, not elsewhere classified; G89.29 Other chronic pain; R73.9 Hyperglycemia, unspecified; I10 Essential (primary) hypertension; J44.89 Other specified chronic obstructive pulmonary disease; M81.0 Age-related osteoporosis without current pathological fracture; Z79.899 Other long term (current) drug therapy; Z68.35 Body mass index [BMI] 35.0-35.9, adult; Z88.8 Allergy status to other drugs, medicaments and biological substances; M54.9 Dorsalgia, unspecified
CPT/HCPCS: 36415; 70450-TC; 71045; 72125-TC; 80048; 80053; 80076; 81000; 81001; 81015; 82570; 83605; 83735; 83880; 83930; 83935; 84100; 84302; 84484; 85025; 85651; 87040; 87086; 87186; 93005; 93306; 93880; 95816; 97110-GP; 97112-GP; 97116-GP; 97530-GP; 99285; G0378; J0696; J1335; J3490; J7050; Q0163